=== PATIENT | male | born 1995 | race Caucasian/White ===

== ENCOUNTER 2017-04-22 10:43 | Emergency (ER) | END 2017-04-22 13:09 | disposition home or self-care (01) ==

== ENCOUNTER 2017-11-05 18:32 | Emergency (ER) | END 2017-11-05 19:50 | disposition home or self-care (01) ==

== ENCOUNTER 2017-11-25 16:07 | Emergency (ER) | END 2017-11-25 18:22 | disposition home or self-care (01) ==

== ENCOUNTER 2017-11-29 20:44 | Emergency (ER) | END 2017-11-29 23:33 | disposition home or self-care (01) ==

== ENCOUNTER 2018-10-16 16:45 | Emergency (ER) | payer OTHER ==
[~2018-10-16] VITALS: Ht 167.6 cm; Wt 64.4 kg
[~2018-10-16 16:45] MED LIST: ALPR1TAB2 PO; AMOX1TAB10 PO; CLIN300C10 PO; HYDR-4011 PO; HYDR15SO8 PO; IBUP-1542 PO; IBUP800T48 PO; MOTS PO; TRAM50TA2 PO
[2018-10-16 16:48] VITALS: BP 134/69; PULSE 103; RESP 18; Ht 167.6 cm; Wt 64.4 kg
== END 2018-10-16 17:57 | disposition home or self-care (01) ==
LOC: FTE 16:45
DX: F41.9 Anxiety disorder, unspecified (principal); Z76.0 Encounter for issue of repeat prescription
CPT/HCPCS: 99281